=== PATIENT | male | born 1985 | race African-American/Black ===

== ENCOUNTER 2017-02-14 01:43 | Emergency (ER) | payer MEDICAID ==
[~2017-02-14] VITALS: Ht 177.8 cm; Wt 72.4 kg
[~2017-02-14 01:43] MED LIST: OXYC-229 PO
[2017-02-14 01:46] VITALS: BP 135/94
[2017-02-14] MEDS ORDERED: IBUPROFEN 200 MG TABLET PO ONE (02:30)
[2017-02-14] MEDS ORDERED: IBUPROFEN 200 MG TABLET ONE (02:48)
== END 2017-02-14 02:58 | disposition home or self-care (01) ==
LOC: ED 02:52
DX: S93.492A Sprain of other ligament of left ankle, initial encounter (principal); Z88.2 Allergy status to sulfonamides; W19.XXXA Unspecified fall, initial encounter; Y93.89 Activity, other specified; Y99.8 Other external cause status; Y92.89 Other specified places as the place of occurrence of the external cause

== ENCOUNTER 2018-06-06 22:11 | Emergency (ER) | payer OTHER ==
[~2018-06-06] VITALS: Ht 167.6 cm; Wt 80.0 kg
[~2018-06-06 22:11] MED LIST changes: -OXYC-229 PO; +OXYC-307 PO
[2018-06-06 22:13] VITALS: BP 131/79
[2018-06-06] MEDS ORDERED: LIDOCAINE 2%, 10ML INFIL ONE (23:00)
== END 2018-06-06 23:24 | disposition home or self-care (01) ==
LOC: ED 22:51
DX: L02.412 Cutaneous abscess of left axilla (principal); M19.90 Unspecified osteoarthritis, unspecified site; Z87.442 Personal history of urinary calculi
CPT/HCPCS: 10060; 99283

== ENCOUNTER 2019-04-14 00:16 | Emergency (ER) | payer MEDICAID, OTHER ==
[~2019-04-14] VITALS: Ht 177.8 cm; Wt 75.0 kg
[2019-04-14 00:18] VITALS: BP 128/89
--- NOTE | 2019-04-14 02:06 | NUR ---
PT D/C WITH D/C SUMMARY. ALL QUESTIONS ANSWERED. QUINTEN BANDAGE APPLIED TO LEFT LOWER EXTREMITY. PT DENIES ANY OTHER NEEDS PERTAINING TO THIS VISIT. PT AMBULATES TO REGISTRATION DESK WITH STEADY GAIT FOR D/C HOME WITH SPOUSE.
== END 2019-04-14 02:09 | disposition home or self-care (01) ==
LOC: ED 01:14
DX: S90.32XA Contusion of left foot, initial encounter (principal); F17.210 Nicotine dependence, cigarettes, uncomplicated; W22.09XA Striking against other stationary object, initial encounter; Y93.89 Activity, other specified; Y92.410 Unspecified street and highway as the place of occurrence of the external cause; Y99.8 Other external cause status
CPT/HCPCS: 99283

== ENCOUNTER 2019-08-31 21:18 | Emergency (ER) | payer MEDICAID ==
[~2019-08-31] VITALS: Ht 177.8 cm; Wt 73.8 kg
--- NOTE | 2019-08-31 21:38 | NUR ---
PT C/O PAINFUL URINATION, COUGHING, AND NOT FEELING GOOD. +VOMIT 3-4 TIMES TODAY. STATES HE THINKS HE PASSED A KIDNEY STONE YESTERDAY, HX MULTIPLE KIDNEY STONES. CONNECTED TO MONITORING. CALL LIGHT IN REACH. MD AT BEDSIDE, AWAITING ORDERS AT THIS TIME.
--- NOTE | 2019-08-31 21:45 | NUR ---
PT AMBULATED TO RESTROOM WITH STEADY GAIT TO PROVIDE URINE SAMPLE. UA COLLECTED AND SENT TO LAB. PT TO XRAY.
[2019-08-31 22:06] LABS: CULTURE INDICATED? YES; MICROSCOPIC INDICATED
[2019-08-31 22:09] LABS: BASOPHILS # (AUTO) 0.01 x10^3/uL (0-0.1); BASOPHILS % (AUTO) 0 % (0-1); EOSINOPHILS # (AUTO) 0.03 x10^3/uL (0-0.4); EOSINOPHILS % (AUTO) 0 % (1-7); LYMPHOCYTES # (AUTO) 2.57 x10^3/uL (1-3.4); LYMPHOCYTES % (AUTO) 30 % (22-44); MD NO; MEAN CORPUSCULAR HEMOGLOBIN 32.1 pg (27.5-34.5); MEAN CORPUSCULAR HGB CONC 34.1 g/dL (33.2-36.2); MEAN CORPUSCULAR VOLUME 94.1 fL (81-97); MEAN PLATELET VOLUME 7.3 fL (7.4-10.4); MONOCYTES # (AUTO) 0.41 x10^3/uL (0.2-0.8); MONOCYTES % (AUTO) 5 % (2-9); NEUTROPHILS # (AUTO) 5.58 x10^3/uL (1.8-6.8); NEUTROPHILS % (AUTO) 65 % (42-75); PLATELET COUNT 313 x10^3/uL (130-400); RED BLOOD COUNT 4.91 x10^6/uL (4.38-5.82); RED CELL DISTRIBUTION WIDTH 14.1 % (9.4-14.8)
[2019-08-31 22:23] LABS: ALANINE AMINOTRANSFERASE 21 U/L (12-78); ALBUMIN 4.1 g/dL (3.4-5.0); ANION GAP 2 mmol/L (5-15); CHLORIDE 108 mmol/L (98-107); CREATININE 0.98 mg/dL (0.7-1.3)
[2019-08-31 22:25] VITALS: BP 125/88
--- NOTE | 2019-08-31 22:25 | NUR ---
PT RESTING COMFORTABLY ON GURNEY. NIEVES.
[2019-08-31 22:27] LABS: ALKALINE PHOSPHATASE 52 U/L (45-117); TOTAL PROTEIN 7.4 g/dL (6.4-8.2); TROPONIN I < 0.015 ng/mL (0.000-0.045)
--- NOTE | 2019-08-31 22:32 | NUR ---
ALL RESULTS ARE BACK AT THIS TIME. CHART UP FOR RECHECK.
== END 2019-08-31 23:10 | disposition home or self-care (01) ==
LOC: ED 22:57
DX: M94.0 Chondrocostal junction syndrome [Tietze] (principal); R07.89 Other chest pain; G43.909 Migraine, unspecified, not intractable, without status migrainosus; F17.200 Nicotine dependence, unspecified, uncomplicated
CPT/HCPCS: 36415; 71046; 80053; 81001; 84484; 85025; 87086; 93005; 99284

== ENCOUNTER 2019-09-19 03:10 | Emergency (ER) | payer MEDICAID ==
[~2019-09-19] VITALS: Ht 177.8 cm; Wt 74.2 kg
--- NOTE | 2019-09-19 03:30 | NUR ---
PT REPORTS RIGHT FLANK PAIN WITH SUSPECTED KIDNEY STONES, PT REPORTS HX OF SAME, REPORTS STENT IN LEFT KIDNEY, WITH HX OF LITHOTRYPSY, BLOOD IN URINE 2 DAYS AGO BUT NONE VISIBLE PRESENTLY. PT REPORTS USE OF OXYCODONE/ ACETOMENAPHEN LAST NIGHT WITH IBUPROPHEN USE. PT POSITIVE FOR CVA PAIN. PT CONNECTED TO MONITORING, CALL LIGHT WITHIN REACH, ALL SAFETY MEASURES IN PLACE. ERP IN ROOM TO EVAL PT.
[2019-09-19 03:51] LABS: BASOPHILS # (AUTO) 0.02 x10^3/uL (0-0.1); BASOPHILS % (AUTO) 0 % (0-1); EOSINOPHILS # (AUTO) 0.03 x10^3/uL (0-0.4); EOSINOPHILS % (AUTO) 0 % (1-7); LYMPHOCYTES # (AUTO) 1.45 x10^3/uL (1-3.4); LYMPHOCYTES % (AUTO) 12 % (22-44); MD NO; MEAN CORPUSCULAR HEMOGLOBIN 32.1 pg (27.5-34.5); MEAN CORPUSCULAR VOLUME 94.6 fL (81-97); MEAN PLATELET VOLUME 7.4 fL (7.4-10.4); MONOCYTES # (AUTO) 0.38 x10^3/uL (0.2-0.8); MONOCYTES % (AUTO) 3 % (2-9); NEUTROPHILS # (AUTO) 10.73 x10^3/uL (1.8-6.8); NEUTROPHILS % (AUTO) 85 % (42-75); PLATELET COUNT 296 x10^3/uL (130-400)
[2019-09-19 03:59] LABS: CULTURE INDICATED? YES; MICROSCOPIC INDICATED
[2019-09-19 04:00] LABS: ALANINE AMINOTRANSFERASE 21 U/L (12-78); ALBUMIN 4.3 g/dL (3.4-5.0); ANION GAP 5 mmol/L (5-15); CALCIUM 8.9 mg/dL (8.5-10.1); CHLORIDE 108 mmol/L (98-107); CREATININE 1.11 mg/dL (0.7-1.3)
[2019-09-19] MEDS ORDERED: KETOROLAC 30 MG/1 ML IM ONE (04:00)
[2019-09-19 04:03] LABS: ALKALINE PHOSPHATASE 50 U/L (45-117); BILIRUBIN,TOTAL 0.8 mg/dL (0.2-1.0); TOTAL PROTEIN 7.4 g/dL (6.4-8.2)
--- NOTE | 2019-09-19 04:05 | NUR ---
PRECEPTING RN ASSUMING FULL CARE OF PT. AT THIS TIME.
[2019-09-19] MEDS ORDERED: KETOROLAC 30 MG/1 ML ONE (04:07)
--- NOTE | 2019-09-19 04:11 | NUR ---
PT. TO CT VIA [employer] AT THIS TIME. WILL MEDICATE UPON RETURN.
[2019-09-19 05:38] VITALS: BP 122/88
== END 2019-09-19 05:41 | disposition home or self-care (01) ==
LOC: ED 05:35
DX: N20.2 Calculus of kidney with calculus of ureter (principal); M19.90 Unspecified osteoarthritis, unspecified site; G43.909 Migraine, unspecified, not intractable, without status migrainosus
CPT/HCPCS: 36415; 74176; 80053; 81001; 83690; 85025; 87086; 96372; 99284; J1885

== ENCOUNTER 2019-09-29 23:07 | Emergency (ER) | payer MEDICAID ==
[~2019-09-29] VITALS: Ht 177.8 cm; Wt 76.6 kg
--- NOTE | 2019-09-29 23:47 | NUR ---
PT C/O RIGHT SIDE FLANK PAIN X2 DAYS. DX RIGHT KIDNEY STONE. STATES BLOOD IN URINE. CONNECTED TO MONITORING. CALL LIGHT IN REACH.
--- NOTE | 2019-09-29 23:49 | NUR ---
URINE COLLECTED AND SENT TO LAB.
[2019-09-29] MEDS ORDERED: TAMS-11 PO (23:53)
[2019-09-30] MEDS ORDERED: ONDANSETRON ODT 4 MG PO ONE
[2019-09-30] MEDS ORDERED: OXYcodone/APAP 5/325MG TABLET PO ONE
[2019-09-30] MEDS ORDERED: KETOROLAC 30 MG/1 ML IM ONE
[2019-09-30] MEDS ORDERED: KETOROLAC 30 MG/1 ML ONE (00:06)
[2019-09-30] MEDS ORDERED: ONDANSETRON ODT 4 MG ONE (00:06)
[2019-09-30] MEDS ORDERED: OXYcodone/APAP 5/325MG TABLET ONE (00:06)
--- NOTE | 2019-09-30 00:10 | NUR ---
MEDS ADMIN PER DEC. PT TAKEN TO US.
--- NOTE | 2019-09-30 00:14 | NUR ---
REPORT GIVEN TO AMRIK BLACK
[2019-09-30 00:21] LABS: BASOPHILS # (AUTO) 0.02 x10^3/uL (0-0.1); BASOPHILS % (AUTO) 0 % (0-1); EOSINOPHILS # (AUTO) 0.11 x10^3/uL (0-0.4); EOSINOPHILS % (AUTO) 1 % (1-7); LYMPHOCYTES # (AUTO) 2.73 x10^3/uL (1-3.4); LYMPHOCYTES % (AUTO) 34 % (22-44); MD NO; MEAN CORPUSCULAR HEMOGLOBIN 32.3 pg (27.5-34.5); MEAN PLATELET VOLUME 7.6 fL (7.4-10.4); MONOCYTES # (AUTO) 0.41 x10^3/uL (0.2-0.8); MONOCYTES % (AUTO) 5 % (2-9); NEUTROPHILS # (AUTO) 4.85 x10^3/uL (1.8-6.8); NEUTROPHILS % (AUTO) 60 % (42-75); PLATELET COUNT 253 x10^3/uL (130-400); RED BLOOD COUNT 4.34 x10^6/uL (4.38-5.82)
[2019-09-30 00:25] LABS: MICROSCOPIC AUTO
--- NOTE | 2019-09-30 00:25 | NUR ---
REPORT RECEIVED FROM RN. ASSUMED CARE OF PT. PT LYING IN BED, FAMILY AT BEDSIDE. NO NEEDS AT THIS TIME.
[2019-09-30 00:26] LABS: CULTURE INDICATED? YES
[2019-09-30 00:31] LABS: ALBUMIN 3.8 g/dL (3.4-5.0); ANION GAP 1 mmol/L (5-15); CALCIUM 8.3 mg/dL (8.5-10.1); CHLORIDE 109 mmol/L (98-107); CREATININE 1.16 mg/dL (0.7-1.3)
[2019-09-30] MEDS ORDERED: CEFDINIR 300 MG CAPSULE PO ONE (02:00)
[2019-09-30 02:20] VITALS: BP 141/78
== END 2019-09-30 02:22 | disposition home or self-care (01) ==
LOC: ED 09-30 00:35
DX: N30.00 Acute cystitis without hematuria (principal); N20.2 Calculus of kidney with calculus of ureter; F17.200 Nicotine dependence, unspecified, uncomplicated
CPT/HCPCS: 36415; 76770; 80048; 81001; 82040; 85025; 87086; 96372; 99284; J1885; Q0162

== ENCOUNTER 2019-10-05 02:38 | Inpatient (IN) | payer MEDICAID ==
[~2019-10-05] VITALS: Ht 177.8 cm; Wt 78.2 kg
[~2019-10-05 02:38] MED LIST changes: +TAMS-11 PO
[2019-10-05] MEDS ORDERED: ONDANSETRON 2MG/ML, 2ML IVPush ONE (03:30)
[2019-10-05] MEDS ORDERED: ONDANSETRON 2MG/ML, 2ML ONE ×2 (03:42→12:20)
[2019-10-05] MEDS ORDERED: MORPHINE SULFATE 4 MG/ML, 1ML ONE ×2 (03:42→04:13)
[2019-10-05 03:47] LABS: MEAN CORPUSCULAR HEMOGLOBIN 31.5 pg (27.5-34.5); MEAN CORPUSCULAR HGB CONC 33.7 g/dL (33.2-36.2); MEAN CORPUSCULAR VOLUME 93.4 fL (81-97); MEAN PLATELET VOLUME 7.5 fL (7.4-10.4); PLATELET COUNT 317 x10^3/uL (130-400); RED BLOOD COUNT 4.79 x10^6/uL (4.38-5.82); RED CELL DISTRIBUTION WIDTH 13.9 % (9.4-14.8)
[2019-10-05 03:51] LABS: ALANINE AMINOTRANSFERASE 20 U/L (12-78); ALBUMIN 4.3 g/dL (3.4-5.0); ANION GAP 7 mmol/L (5-15); CALCIUM 9.2 mg/dL (8.5-10.1); CHLORIDE 107 mmol/L (98-107); CREATININE 1.04 mg/dL (0.7-1.3)
[2019-10-05 03:54] LABS: ALKALINE PHOSPHATASE 46 U/L (45-117); TOTAL PROTEIN 7.7 g/dL (6.4-8.2)
[2019-10-05] MEDS: MORPHINE SULFATE 4 MG/ML, 1ML IVPush PRN ×2 (03:58→04:15)
--- NOTE | 2019-10-05 04:02 | NUR ---
PT WITH PAIN THE RIGHT FLANK AND RLQ X2-3 WEEKS. HX RENAL STONE. +N/V INTERMITTANT. PIV PLACED AND PT MEDICATED FOR PAIN PER EMAR. MOUTH SWABS PROVIDED PER PT REQUEST. FRIEND AT BEDSIDE. CALL LIGHT WITHIN REACH
--- NOTE | 2019-10-05 04:15 | NUR ---
PT RANG CALL LIGHT AND REQUESTS MORE PAIN MEDICATION BECAUSE HE STATES HE IS STILL IN A LOT OF PAIN. PT MEDICATED FOR PAIN A SECOND TIME AND DOSE 2 OF 2 MET.
[2019-10-05 04:33] LABS: BASOPHILS # (AUTO) 0.07 x10^3/uL (0-0.1); BASOPHILS % (AUTO) 1 % (0-1); EOSINOPHILS # (AUTO) 0.08 x10^3/uL (0-0.4); EOSINOPHILS % (AUTO) 1 % (1-7); LYMPHOCYTES # (AUTO) 2.44 x10^3/uL (1-3.4); LYMPHOCYTES % (AUTO) 18 % (22-44); MD SCAN; MONOCYTES # (AUTO) 0.56 x10^3/uL (0.2-0.8); MONOCYTES % (AUTO) 4 % (2-9); NEUTROPHILS # (AUTO) 10.55 x10^3/uL (1.8-6.8); NEUTROPHILS % (AUTO) 77 % (42-75)
[2019-10-05 04:55] LABS: MICROSCOPIC AUTO
[2019-10-05 05:02] LABS: CULTURE INDICATED? YES
[2019-10-05] MEDS ORDERED: KETOROLAC 30 MG/1 ML IVPush ONE (05:30)
[2019-10-05] MEDS ORDERED: KETOROLAC 30 MG/1 ML ONE (05:31)
--- NOTE | 2019-10-05 05:34 | NUR ---
PT STILL WITH PAIN. ER MD WARDO IN TO DISCUSS POC WITH PT AND ALSO ADDED NEW ORDERS FOR PAIN MEDICATION. PT MEDICATED FOR PAIN PER EMAR.
[2019-10-05] MEDS ORDERED: CEFTRIAXONE PMX 1GM/50ML 50 ML ONE (05:51)
[2019-10-05] MEDS ORDERED: CEFTRIAXONE PMX 1GM/50ML 50 ML IV ONE (06:00)
--- NOTE | 2019-10-05 06:00 | NUR ---
PER ER NO BC BEFORE ABX
[2019-10-05] MEDS ORDERED: MORPHINE SULFATE 4 MG/ML, 1ML IVPush PRN (06:30)
[2019-10-05] MEDS ORDERED: ONDANSETRON 2MG/ML, 2ML IVPush PRN ×2 (06:30→08:00)
--- NOTE | 2019-10-05 06:38 | NUR ---
Zehra Addendum: 10/05/19 at 0638 by DEON REPORT TO SOFIA Shahid
[2019-10-05] MEDS ORDERED: METOCLOPRAMIDE 5 MG/ML, 2ML IVPush PRN (08:00)
[2019-10-05] MEDS ORDERED: ACETAMINOPHEN 325 MG TABLET PO PRN ×2 (08:00→12:30)
[2019-10-05] MEDS ORDERED: DOCUSATE 100 MG CAPSULE PO PRN (08:00)
[2019-10-05] MEDS ORDERED: hydrALAzine 20 MG/ML, 1ML IVPush PRN (08:00)
[2019-10-05] MEDS ORDERED: NICOTINE 7 MG/24 HR PATCH.TD24 TD SCH (08:00)
[2019-10-05] MEDS ORDERED: PROMETHAZINE 25 MG/ML, 1ML IM PRN (08:00)
[2019-10-05] MEDS: HEPARIN 5,000 UNITS/ML, 1ML SQ SCH ×3 (08:00→23:16)
[2019-10-05] MEDS ORDERED: morphine SULFATE 10 MG/ML, 1ML IVPush PRN (08:00)
[2019-10-05] MEDS ORDERED: LABETALOL 5MG/ML, 20ML IVPush PRN (08:00)
[2019-10-05] MEDS ORDERED: POTASSIUM CHLORIDE 20 MEQ TAB.ER.PRT PO ONE (08:00)
[2019-10-05] MEDS ORDERED: POLYETHYLENE GLYCOL 17 GM PACKET PO PRN (08:00)
[2019-10-05] MEDS: SODIUM CHLORIDE 0.9% 1,000 ML IV SCH ×4 (08:37→23:13)
[2019-10-05] MEDS: TAMSULOSIN 0.4 MG CAP.ER.24H PO SCH (08:42)
[2019-10-05 09:00] VITALS: BP 124/80
[2019-10-05] MEDS: OXYcodone IR 5MG TABLET PO PRN ×2 (10:10→19:46)
[2019-10-05] MEDS ORDERED: FENTANYL PF 100 MCG/2ML ONE ×3 (12:18→15:38)
[2019-10-05] MEDS ORDERED: DEXAMETHASONE 4 MG/ML, 1ML ONE (12:20)
[2019-10-05] MEDS ORDERED: SUCCINYLCHOLINE 20 MG/ML, 10ML ONE (12:20)
[2019-10-05] MEDS ORDERED: PROPOFOL 10 MG/ML, 20ML ONE (12:20)
[2019-10-05] MEDS ORDERED: PROMETHAZINE 25 MG/ML, 1ML IV PRN (12:30)
[2019-10-05] MEDS ORDERED: OXYcodone 5 MG/5 ML ORAL.SOL UDC PO PRN (12:30)
[2019-10-05] MEDS ORDERED: hydrALAzine 20 MG/ML, 1ML IV PRN (12:30)
[2019-10-05] MEDS ORDERED: LABETALOL 5MG/ML, 20ML IV PRN (12:30)
[2019-10-05] MEDS ORDERED: MEPERIDINE/PF 25MG/ML,1ML IVPush PRN (12:30)
[2019-10-05] MEDS ORDERED: EPHEDRINE 50 MG/ML, 1ML IVPush PRN (12:30)
[2019-10-05] MEDS ORDERED: HYDROmorphone 2 MG/ML, 1ML IVPush PRN (12:30)
[2019-10-05] MEDS ORDERED: ONDANSETRON 2MG/ML, 2ML IV PRN (12:30)
[2019-10-05] MEDS ORDERED: MIDAZOLAM 1 MG/ML, 2ML ONE (13:40)
[2019-10-05] MEDS ORDERED: OXYcodone 5 MG/5 ML ORAL.SOL UDC ONE (15:38)
[2019-10-05] MEDS: FENTANYL PF 100 MCG/2ML IV PRN ×2 (15:42→15:50)
[2019-10-05] MEDS ORDERED: MEPERIDINE/PF 25MG/ML,1ML ONE (15:55)
[2019-10-05] MEDS: KETOROLAC 30 MG/1 ML IV PRN ×2 (16:52→23:20)
[2019-10-05 18:56] VITALS: BP 136/83
[2019-10-06 00:29] VITALS: BP 143/91
[2019-10-06] MEDS: OXYcodone IR 5MG TABLET PO PRN ×3 (01:45→10:06)
[2019-10-06 04:01] VITALS: BP 132/83
[2019-10-06] MEDS: SODIUM CHLORIDE 0.9% 1,000 ML IV SCH (05:32)
[2019-10-06 05:36] LABS: BASOPHILS # (AUTO) 0.08 x10^3/uL (0-0.1); BASOPHILS % (AUTO) 1 % (0-1); EOSINOPHILS # (AUTO) 0.01 x10^3/uL (0-0.4); EOSINOPHILS % (AUTO) 0 % (1-7); LYMPHOCYTES # (AUTO) 1.83 x10^3/uL (1-3.4); LYMPHOCYTES % (AUTO) 13 % (22-44); MD NO; MEAN CORPUSCULAR HEMOGLOBIN 31.2 pg (27.5-34.5); MEAN CORPUSCULAR HGB CONC 33.3 g/dL (33.2-36.2); MEAN CORPUSCULAR VOLUME 93.9 fL (81-97); MONOCYTES # (AUTO) 0.59 x10^3/uL (0.2-0.8); MONOCYTES % (AUTO) 4 % (2-9); NEUTROPHILS # (AUTO) 11.18 x10^3/uL (1.8-6.8); NEUTROPHILS % (AUTO) 82 % (42-75); PLATELET COUNT 285 x10^3/uL (130-400); RED BLOOD COUNT 4.44 x10^6/uL (4.38-5.82); RED CELL DISTRIBUTION WIDTH 14.1 % (9.4-14.8)
[2019-10-06 05:43] LABS: ANION GAP 4 mmol/L (5-15); CALCIUM 8.8 mg/dL (8.5-10.1); CHLORIDE 110 mmol/L (98-107)
[2019-10-06 05:44] LABS: CREATININE 0.97 mg/dL (0.7-1.3)
[2019-10-06 06:41] VITALS: BP 126/80
[2019-10-06] MEDS: KETOROLAC 30 MG/1 ML IV PRN (07:09)
[2019-10-06] MEDS: TAMSULOSIN 0.4 MG CAP.ER.24H PO SCH (08:12)
[2019-10-06] MEDS: HEPARIN 5,000 UNITS/ML, 1ML SQ SCH (08:12)
[2019-10-06] MEDS ORDERED: TAMS-11 PO (09:14)
[2019-10-06] MEDS ORDERED: DOCU100C33 PO (09:14)
[2019-10-06] MEDS ORDERED: OXYC5CAP2 PO (09:48)
[2019-10-07] MEDS ORDERED: ONDA4TAB7 PO (21:25)
== END 2019-10-06 10:28 | disposition home or self-care (01) | DRG 670 ==
LOC: ED 06:00 → EDIP 06:27 → 3N 06:30 → 4NE 16:35 → DCLOUNGE 10-06 10:17
PROVIDERS: ADMIT Internal Medicine; ATTEND Internal Medicine
PROC: 0TC68ZZ Extirpation of Matter from Right Ureter, Via Natural or Artificial Opening Endoscopic (ICD-10-PCS; principal; 2019-10-05 13:30)
DX: N13.2 Hydronephrosis with renal and ureteral calculous obstruction (principal); D72.829 Elevated white blood cell count, unspecified; E87.6 Hypokalemia; F17.210 Nicotine dependence, cigarettes, uncomplicated; N50.811 Right testicular pain; Z82.49 Family history of ischemic heart disease and other diseases of the circulatory system; Z83.3 Family history of diabetes mellitus; Z88.2 Allergy status to sulfonamides
CPT/HCPCS: 36415; 74018; 74176; 76000; 80048; 80053; 81001; 83036; 83690; 83735; 84100; 85025; 87086; 96374; 96375; 96376; 99285; G0378; J0696; J1100; J1885; J2250; J2405; J2704; J3010; C1769; J0330; J2175; J2270; J7030

== ENCOUNTER 2019-10-07 21:07 | Inpatient (IN) | payer MEDICAID ==
[~2019-10-07] VITALS: Ht 177.8 cm; Wt 78.0 kg
[~2019-10-07 21:07] MED LIST changes: +DOCU100C33 PO; +OXYC5CAP2 PO
[2019-10-07] MEDS ORDERED: ONDA4TAB7 PO (21:25)
--- NOTE | 2019-10-07 21:53 | NUR ---
first contact with pt. pt was dc from hospital yesterday after cystoscopy/lithotripsy. States that he lied a nd said that he had a bowel movement but has not. Began having upper abd pain yesterday evening, currently nauseated, diffuse abd pain. pt's aox4. resps even and unlabored. bp/spo2 monitors in place. call light within reach. edmd at bedside to evaluate at this time.
[2019-10-07] MEDS ORDERED: ONDANSETRON 2MG/ML, 2ML ONE (21:59)
[2019-10-07] MEDS ORDERED: HYDROmorphone 1 MG/ML, 1ML INJ ONE ×2 (21:59→23:11)
[2019-10-07] MEDS ORDERED: ONDANSETRON 2MG/ML, 2ML IVPush ONE (22:00)
[2019-10-07] MEDS: HYDROmorphone 2 MG/ML, 1ML IVPush PRN ×2 (22:11→23:13)
--- NOTE | 2019-10-07 22:13 | NUR ---
pt medicated per emar. pt tolerated well. pt's aox4. resps even and unlabored.
[2019-10-07 22:27] LABS: MICROSCOPIC AUTO
[2019-10-07 22:29] LABS: BASOPHILS # (AUTO) 0.04 x10^3/uL (0-0.1); BASOPHILS % (AUTO) 0 % (0-1); EOSINOPHILS # (AUTO) 0.03 x10^3/uL (0-0.4); EOSINOPHILS % (AUTO) 0 % (1-7); LYMPHOCYTES # (AUTO) 1.71 x10^3/uL (1-3.4); LYMPHOCYTES % (AUTO) 12 % (22-44); MD NO; MEAN CORPUSCULAR HEMOGLOBIN 31.7 pg (27.5-34.5); MEAN CORPUSCULAR HGB CONC 34.1 g/dL (33.2-36.2); MEAN CORPUSCULAR VOLUME 92.8 fL (81-97); MEAN PLATELET VOLUME 7.4 fL (7.4-10.4); MONOCYTES % (AUTO) 5 % (2-9); NEUTROPHILS # (AUTO) 11.34 x10^3/uL (1.8-6.8); NEUTROPHILS % (AUTO) 82 % (42-75); PLATELET COUNT 286 x10^3/uL (130-400); RED BLOOD COUNT 4.56 x10^6/uL (4.38-5.82)
[2019-10-07 22:32] LABS: CULTURE INDICATED? YES
[2019-10-07 22:41] LABS: ALANINE AMINOTRANSFERASE 17 U/L (12-78); ALBUMIN 3.8 g/dL (3.4-5.0); ANION GAP 8 mmol/L (5-15); CALCIUM 8.9 mg/dL (8.5-10.1); CHLORIDE 108 mmol/L (98-107); CREATININE 1.37 mg/dL (0.7-1.3)
[2019-10-07 22:43] LABS: ALKALINE PHOSPHATASE 52 U/L (45-117); BILIRUBIN,TOTAL 1.1 mg/dL (0.2-1.0); TOTAL PROTEIN 7.2 g/dL (6.4-8.2)
--- NOTE | 2019-10-07 23:08 | NUR ---
PT BACK TO ROOM FROM CT AT THIS TIME.
[2019-10-07] MEDS ORDERED: OMNIPAQUE 350 MG/ML, 100ML BOTTLE ONE (23:46)
--- NOTE | 2019-10-07 23:56 | NUR ---
PT REQUESTING PAIN MED AT THIS TIME. EDMD NOTIFIED.
--- NOTE | 2019-10-08 01:06 | NUR ---
ASSUMED CARE OF PATIENT. REPORT GIVEN FROM SOFIA COATS
--- NOTE | 2019-10-08 01:25 | NUR ---
DR MIRANDA IN ROOM
[2019-10-08] MEDS ORDERED: SODIUM CHLORIDE 0.9% 1,000ML IVBOLUS ONE (01:30)
[2019-10-08] MEDS ORDERED: ONDANSETRON 2MG/ML, 2ML IVPush ONE (01:30)
[2019-10-08] MEDS ORDERED: KETOROLAC 30 MG/1 ML IVPush ONE (01:30)
[2019-10-08] MEDS ORDERED: KETOROLAC 30 MG/1 ML ONE ×2 (01:38→14:18)
[2019-10-08] MEDS ORDERED: ONDANSETRON 2MG/ML, 2ML ONE (01:38)
[2019-10-08 03:26] VITALS: BP 130/84
[2019-10-08] MEDS ORDERED: POLYETHYLENE GLYCOL 17 GM PACKET PO PRN (04:30)
[2019-10-08] MEDS ORDERED: BISACODYL 10 MG SUPP PR PRN (04:30)
[2019-10-08] MEDS ORDERED: ONDANSETRON 2MG/ML, 2ML IVPush PRN ×2 (04:30→14:30)
[2019-10-08] MEDS: LACTATED RINGERS 1,000 ML IV SCH ×3 (04:58→18:04)
[2019-10-08] MEDS: KETOROLAC 30 MG/1 ML IV PRN ×4 (05:02→22:51)
[2019-10-08] MEDS ORDERED: POTASSIUM CHLORIDE 20 MEQ TAB.ER.PRT PO ONE (07:30)
[2019-10-08 07:38] VITALS: BP 129/81
[2019-10-08] MEDS: HYDROmorphone 2 MG/ML, 1ML IVPush PRN (08:09)
[2019-10-08] MEDS ORDERED: LACTULOSE 20 GM/30 ML UDC PO PRN (09:00)
[2019-10-08 09:51] LABS: BASOPHILS # (AUTO) 0.04 x10^3/uL (0-0.1); BASOPHILS % (AUTO) 0 % (0-1); EOSINOPHILS # (AUTO) 0.08 x10^3/uL (0-0.4); EOSINOPHILS % (AUTO) 1 % (1-7); LYMPHOCYTES # (AUTO) 2.12 x10^3/uL (1-3.4); LYMPHOCYTES % (AUTO) 15 % (22-44); MD NO; MEAN CORPUSCULAR HEMOGLOBIN 31.4 pg (27.5-34.5); MEAN CORPUSCULAR HGB CONC 33.5 g/dL (33.2-36.2); MEAN CORPUSCULAR VOLUME 93.8 fL (81-97); MEAN PLATELET VOLUME 7.3 fL (7.4-10.4); MONOCYTES # (AUTO) 0.92 x10^3/uL (0.2-0.8); MONOCYTES % (AUTO) 7 % (2-9); NEUTROPHILS # (AUTO) 10.62 x10^3/uL (1.8-6.8); NEUTROPHILS % (AUTO) 77 % (42-75); PLATELET COUNT 293 x10^3/uL (130-400); RED BLOOD COUNT 4.67 x10^6/uL (4.38-5.82)
[2019-10-08 10:02] LABS: CALCIUM 8.7 mg/dL (8.5-10.1); CREATININE 1.29 mg/dL (0.7-1.3)
[2019-10-08] MEDS: SENNA/DOCUSATE TABLET PO SCH (10:12)
[2019-10-08 10:13] LABS: ANION GAP 7 mmol/L (5-15); CHLORIDE 107 mmol/L (98-107)
[2019-10-08] MEDS ORDERED: PROPOFOL 10 MG/ML, 20ML ONE (12:49)
[2019-10-08] MEDS ORDERED: DEXAMETHASONE 4 MG/ML, 1ML ONE (12:49)
[2019-10-08] MEDS ORDERED: SUCCINYLCHOLINE 20 MG/ML, 10ML ONE (12:49)
[2019-10-08] MEDS ORDERED: CEFAZOLIN 1,000 MG ONE (12:49)
[2019-10-08] MEDS ORDERED: MIDAZOLAM 1 MG/ML, 2ML ONE (12:51)
[2019-10-08] MEDS ORDERED: FENTANYL PF 100 MCG/2ML ONE ×2 (13:03→14:18)
[2019-10-08] MEDS ORDERED: PHENAZOPYRIDINE 200 MG TABLET PO PRN (13:30)
[2019-10-08] MEDS ORDERED: PROMETHAZINE 25 MG/ML, 1ML IV PRN (14:30)
[2019-10-08] MEDS ORDERED: KETOROLAC 30 MG/1 ML IV PRN (14:30)
[2019-10-08] MEDS ORDERED: HYDROmorphone 1 MG/ML, 1ML INJ IV PRN (14:30)
[2019-10-08] MEDS ORDERED: ALBUTEROL SULFATE 2.5 MG/3 ML NPPB PRN (14:30)
[2019-10-08] MEDS ORDERED: FENTANYL PF 100 MCG/2ML IV PRN (14:30)
[2019-10-08] MEDS ORDERED: MEPERIDINE/PF 25MG/0.5ML IVPush PRN (14:30)
[2019-10-08] MEDS ORDERED: METOCLOPRAMIDE 5 MG/ML, 2ML IV PRN (14:30)
[2019-10-08] MEDS ORDERED: OXYcodone 5 MG/5 ML ORAL.SOL UDC PO PRN (14:30)
[2019-10-08] MEDS ORDERED: LABETALOL 5MG/ML, 20ML IV PRN (14:30)
[2019-10-08] MEDS ORDERED: hydrALAzine 20 MG/ML, 1ML IV PRN (14:30)
[2019-10-08 14:59] VITALS: BP 154/97
[2019-10-08] MEDS ORDERED: DIPHENHYDRAMINE 50 MG CAPSULE PO PRN (18:00)
[2019-10-08 19:43] VITALS: BP 139/91
[2019-10-09 01:10] VITALS: BP 127/85
[2019-10-09 04:49] VITALS: BP 151/95
[2019-10-09] MEDS: KETOROLAC 30 MG/1 ML IV PRN (05:17)
[2019-10-09] MEDS: LACTATED RINGERS 1,000 ML IV SCH (05:17)
[2019-10-09] MEDS: HYDROmorphone 2 MG/ML, 1ML IVPush PRN (05:25)
[2019-10-09 06:54] LABS: BASOPHILS # (AUTO) 0.04 x10^3/uL (0-0.1); BASOPHILS % (AUTO) 0 % (0-1); EOSINOPHILS # (AUTO) 0.08 x10^3/uL (0-0.4); EOSINOPHILS % (AUTO) 1 % (1-7); LYMPHOCYTES # (AUTO) 2.75 x10^3/uL (1-3.4); LYMPHOCYTES % (AUTO) 24 % (22-44); MD NO; MEAN CORPUSCULAR HEMOGLOBIN 31.1 pg (27.5-34.5); MEAN CORPUSCULAR HGB CONC 33.1 g/dL (33.2-36.2); MEAN CORPUSCULAR VOLUME 94.1 fL (81-97); MEAN PLATELET VOLUME 8.1 fL (7.4-10.4); MONOCYTES # (AUTO) 0.63 x10^3/uL (0.2-0.8); MONOCYTES % (AUTO) 6 % (2-9); NEUTROPHILS # (AUTO) 7.93 x10^3/uL (1.8-6.8); NEUTROPHILS % (AUTO) 69 % (42-75); PLATELET COUNT 271 x10^3/uL (130-400); RED BLOOD COUNT 4.51 x10^6/uL (4.38-5.82)
[2019-10-09 07:01] LABS: ANION GAP 7 mmol/L (5-15); CALCIUM 8.5 mg/dL (8.5-10.1); CHLORIDE 108 mmol/L (98-107); CREATININE 1.06 mg/dL (0.7-1.3)
[2019-10-09 07:28] VITALS: BP 137/89
[2019-10-09] MEDS: SENNA/DOCUSATE TABLET PO SCH (09:00)
[2019-10-09] MEDS ORDERED: OXYBUTYNIN CHLORIDE 5 MG TABLET PO SCH (09:00)
[2019-10-09] MEDS ORDERED: OXYB5TAB10 PO (09:08)
== END 2019-10-09 10:35 | disposition home or self-care (01) | DRG 661 ==
LOC: ED 10-08 00:29 → EDIP 10-08 01:58 → 4NE 10-08 02:55 → DCLOUNGE 10-09 10:26
PROVIDERS: ADMIT Family Medicine; ATTEND Family Medicine
PROC: 0T768DZ Dilation of Right Ureter with Intraluminal Device, Via Natural or Artificial Opening Endoscopic (ICD-10-PCS; principal; 2019-10-08 13:00)
DX: N13.2 Hydronephrosis with renal and ureteral calculous obstruction (principal); D72.829 Elevated white blood cell count, unspecified; N17.9 Acute kidney failure, unspecified; E86.0 Dehydration; E87.6 Hypokalemia; F17.210 Nicotine dependence, cigarettes, uncomplicated; K59.00 Constipation, unspecified; R31.0 Gross hematuria; Z87.442 Personal history of urinary calculi; Z88.2 Allergy status to sulfonamides
CPT/HCPCS: 36415; 74018; 74021; 74177; 76000; 80048; 80053; 81001; 83605; 83690; 85025; 87086; G0378; J0690; J1100; J1170; J1885; J2250; J2405; J2704; J3010; Q9967; C1769; C2617; J0330; J7030; J7120

== ENCOUNTER 2019-10-17 14:34 | Outpatient (CLI) | payer MEDICAID ==
[~2019-10-17 14:34] MED LIST changes: +ONDA4TAB7 PO; +OXYB5TAB10 PO
== END 2019-10-17 23:59 | disposition home or self-care (01) ==
LOC: CFH 14:34
PROVIDERS: ATTEND Urology
DX: N20.1 Calculus of ureter (principal); R10.9 Unspecified abdominal pain; Z96.0 Presence of urogenital implants
CPT/HCPCS: 74018

== ENCOUNTER 2020-03-28 20:21 | Emergency (ER) | payer MEDICAID ==
[~2020-03-28] VITALS: Ht 177.8 cm; Wt 73.0 kg
[2020-03-28 20:23] VITALS: BP 126/90
[2020-03-28] MEDS ORDERED: KETOROLAC 30 MG/1 ML ONE (21:20)
[2020-03-28] MEDS ORDERED: KETOROLAC 30 MG/1 ML IM ONE (21:30)
[2020-03-28] MEDS ORDERED: IBUPROFEN 600 MG TABLET ONE (21:41)
[2020-03-28] MEDS ORDERED: ACETAMINOPHEN 500 MG TABLET ONE (21:41)
[2020-03-28] MEDS ORDERED: IBUPROFEN 600 MG TABLET PO ONE (22:00)
[2020-03-28] MEDS ORDERED: ACETAMINOPHEN 500 MG TABLET PO ONE (22:00)
== END 2020-03-28 22:08 | disposition home or self-care (01) ==
LOC: ED 21:20
DX: S67.192A Crushing injury of right middle finger, initial encounter (principal); F17.210 Nicotine dependence, cigarettes, uncomplicated; G43.909 Migraine, unspecified, not intractable, without status migrainosus; Z87.442 Personal history of urinary calculi; W23.0XXA Caught, crushed, jammed, or pinched between moving objects, initial encounter; Y93.89 Activity, other specified; Y92.009 Unspecified place in unspecified non-institutional (private) residence as the place of occurrence of the external cause; Y99.8 Other external cause status
CPT/HCPCS: 29130; 73140; 96372; 99283; J1885; 29125

== ENCOUNTER 2020-04-12 23:51 | Emergency (ER) | payer MEDICAID ==
[~2020-04-12] VITALS: Ht 177.8 cm; Wt 73.0 kg
[2020-04-13] MEDS ORDERED: KETOROLAC 30 MG/1 ML ONE (00:09)
[2020-04-13] MEDS ORDERED: MORPHINE SULFATE 4 MG/ML, 1ML ONE (00:09)
[2020-04-13] MEDS ORDERED: ONDANSETRON 2MG/ML, 2ML ONE ×2 (00:09→01:36)
--- NOTE | 2020-04-13 00:21 | NUR ---
PT TO US AT THIS TIME. MEDICATED FOR PAIN ORDERED BEFORE.
[2020-04-13] MEDS ORDERED: SODIUM CHLORIDE FLUSH 10ML SYR IVF ONE (00:30)
[2020-04-13] MEDS ORDERED: KETOROLAC 30 MG/1 ML IVPush ONE (00:30)
[2020-04-13] MEDS ORDERED: MORPHINE SULFATE 4 MG/ML, 1ML IVPush PRN (00:30)
[2020-04-13] MEDS ORDERED: ONDANSETRON 2MG/ML, 2ML IVPush ONE (00:30)
[2020-04-13 00:38] LABS: MICROSCOPIC INDICATED
[2020-04-13 01:04] LABS: BASOPHILS # (AUTO) 0.03 x10^3/uL (0-0.1); BASOPHILS % (AUTO) 0 % (0-1); EOSINOPHILS # (AUTO) 0.05 x10^3/uL (0-0.4); EOSINOPHILS % (AUTO) 1 % (1-7); LYMPHOCYTES % (AUTO) 42 % (22-44); MD NO; MEAN CORPUSCULAR HEMOGLOBIN 31.2 pg (27.5-34.5); MEAN CORPUSCULAR HGB CONC 33.7 g/dL (33.2-36.2); MEAN CORPUSCULAR VOLUME 92.5 fL (81-97); MEAN PLATELET VOLUME 7.6 fL (7.4-10.4); MONOCYTES # (AUTO) 0.36 x10^3/uL (0.2-0.8); MONOCYTES % (AUTO) 5 % (2-9); NEUTROPHILS % (AUTO) 53 % (42-75); PLATELET COUNT 282 x10^3/uL (130-400); RED CELL DISTRIBUTION WIDTH 14.6 % (9.4-14.8)
[2020-04-13 01:11] LABS: ALANINE AMINOTRANSFERASE 27 U/L (12-78); ALBUMIN 3.9 g/dL (3.4-5.0); ANION GAP 6 mmol/L (5-15); CALCIUM 8.5 mg/dL (8.5-10.1); CHLORIDE 109 mmol/L (98-107); CREATININE 0.89 mg/dL (0.7-1.3)
[2020-04-13 01:13] LABS: ALKALINE PHOSPHATASE 49 U/L (45-117); BILIRUBIN,TOTAL 0.6 mg/dL (0.2-1.0); TOTAL PROTEIN 6.9 g/dL (6.4-8.2)
[2020-04-13] MEDS ORDERED: HYDROmorphone 1 MG/ML, 1ML INJ IV ONE (01:30)
[2020-04-13] MEDS ORDERED: HYDROmorphone 1 MG/ML, 1ML INJ ONE (01:36)
[2020-04-13 01:47] VITALS: BP 102/71
--- NOTE | 2020-04-13 03:08 | NUR ---
pt discharged by jayme azar rn
== END 2020-04-13 03:16 | disposition home or self-care (01) ==
LOC: ED 04-13 00:42
DX: N13.2 Hydronephrosis with renal and ureteral calculous obstruction (principal); M79.605 Pain in left leg; G43.909 Migraine, unspecified, not intractable, without status migrainosus
CPT/HCPCS: 36415; 74018; 76770; 80053; 81001; 85025; 96374; 96375; 99285; J1170; J1885; J2270; J2405

== ENCOUNTER 2020-04-14 05:18 | Emergency (ER) | payer MEDICAID ==
[~2020-04-14] VITALS: Ht 177.8 cm; Wt 73.0 kg
[2020-04-14] MEDS ORDERED: HYDROmorphone 1 MG/ML, 1ML INJ ONE ×3 (05:32→09:48)
[2020-04-14] MEDS ORDERED: ONDANSETRON 2MG/ML, 2ML ONE (05:32)
[2020-04-14] MEDS: HYDROmorphone 1 MG/ML, 1ML INJ IVPush PRN ×2 (05:38→06:46)
--- NOTE | 2020-04-14 05:39 | NUR ---
PT MEDICATED PER DEC 06 RIGHTS VERIFIED.
[2020-04-14] MEDS ORDERED: SODIUM CHLORIDE FLUSH 10ML SYR IVF ONE (06:00)
[2020-04-14] MEDS ORDERED: ONDANSETRON 2MG/ML, 2ML IVPush ONE (06:00)
[2020-04-14 06:29] LABS: BASOPHILS # (AUTO) 0.06 x10^3/uL (0-0.1); BASOPHILS % (AUTO) 0 % (0-1); EOSINOPHILS # (AUTO) 0.11 x10^3/uL (0-0.4); EOSINOPHILS % (AUTO) 1 % (1-7); LYMPHOCYTES # (AUTO) 4.85 x10^3/uL (1-3.4); LYMPHOCYTES % (AUTO) 31 % (22-44); MD NO; MEAN CORPUSCULAR HEMOGLOBIN 31.5 pg (27.5-34.5); MEAN CORPUSCULAR HGB CONC 33.8 g/dL (33.2-36.2); MEAN CORPUSCULAR VOLUME 93.3 fL (81-97); MEAN PLATELET VOLUME 8.2 fL (7.4-10.4); MONOCYTES # (AUTO) 0.69 x10^3/uL (0.2-0.8); MONOCYTES % (AUTO) 5 % (2-9); NEUTROPHILS # (AUTO) 9.73 x10^3/uL (1.8-6.8); NEUTROPHILS % (AUTO) 63 % (42-75); PLATELET COUNT 293 x10^3/uL (130-400); RED BLOOD COUNT 5.05 x10^6/uL (4.38-5.82); RED CELL DISTRIBUTION WIDTH 14.6 % (9.4-14.8)
[2020-04-14] MEDS ORDERED: KETOROLAC 30 MG/1 ML IVPush ONE (06:30)
[2020-04-14 06:35] LABS: ALANINE AMINOTRANSFERASE 33 U/L (12-78); ALBUMIN 4.3 g/dL (3.4-5.0); ANION GAP 5 mmol/L (5-15); CALCIUM 8.9 mg/dL (8.5-10.1); CHLORIDE 105 mmol/L (98-107)
[2020-04-14 06:38] LABS: ALKALINE PHOSPHATASE 55 U/L (45-117); CREATININE 1.15 mg/dL (0.7-1.3); TOTAL PROTEIN 7.8 g/dL (6.4-8.2)
[2020-04-14] MEDS ORDERED: KETOROLAC 30 MG/1 ML ONE (06:43)
--- NOTE | 2020-04-14 06:57 | NUR ---
REPORT RECEIVED FROM ELISEO BLACK.
--- NOTE | 2020-04-14 07:37 | NUR ---
PT PROVIDED URINE SAMPLE AT THIS TIME. URINE COLLECTED AND UA SENT.
[2020-04-14 07:45] LABS: MICROSCOPIC INDICATED
--- NOTE | 2020-04-14 08:36 | NUR ---
PT SLEEPING IN [facility]. RESPS EVEN AND UNLABORED. BP/SPO2 MONITORS IN PLACE. CALL LIGHT WITHIN REACH.
--- NOTE | 2020-04-14 09:05 | NUR ---
report from nato odonnell. pt back from ct. c/o L sided abd pain, asking for more pain meds. will communicate to md. denies nausea. vss. call lawrence. as
--- NOTE | 2020-04-14 09:22 | NUR ---
REPORT GIVEN TO MONE BLACK.
[2020-04-14 09:53] VITALS: BP 133/94
[2020-04-14] MEDS ORDERED: HYDROmorphone 2 MG/ML, 1ML IVPush PRN (10:00)
== END 2020-04-14 10:19 | disposition home or self-care (01) ==
LOC: ED 06:03
DX: N13.2 Hydronephrosis with renal and ureteral calculous obstruction (principal); N23 Unspecified renal colic; R31.9 Hematuria, unspecified; R11.2 Nausea with vomiting, unspecified; G43.909 Migraine, unspecified, not intractable, without status migrainosus
CPT/HCPCS: 36415; 74176; 80053; 81001; 85025; 96374; 96375; 96376; 99285; J1170; J1885; J2405

== ENCOUNTER 2020-06-02 20:55 | Emergency (ER) | payer MEDICAID ==
[~2020-06-02] VITALS: Ht 177.8 cm; Wt 73.3 kg
--- NOTE | 2020-06-02 21:12 | NUR ---
Patient presents to ER c/o periumbilical abd pain since . Patient thinks it is something he ate that day. Also c/o N/V/D. He ate today around approx 8428-2129. He was not able to keep it down and vomited. Patient is in NAD. Respirations even and unlaobred
[2020-06-02] MEDS ORDERED: METOCLOPRAMIDE 5 MG/ML, 2ML IVPush ONE (21:30)
[2020-06-02] MEDS ORDERED: SODIUM CHLORIDE FLUSH 10ML SYR IVF ONE (21:30)
[2020-06-02] MEDS ORDERED: SODIUM CHLORIDE 0.9% 1,000ML IVBOLUS ONE (21:30)
[2020-06-02] MEDS ORDERED: METOCLOPRAMIDE 5 MG/ML, 2ML ONE (21:38)
[2020-06-02 21:48] LABS: BASOPHILS # (AUTO) 0.03 x10^3/uL (0-0.1); BASOPHILS % (AUTO) 0 % (0-1); EOSINOPHILS # (AUTO) 0.07 x10^3/uL (0-0.4); EOSINOPHILS % (AUTO) 1 % (1-7); LYMPHOCYTES # (AUTO) 3.53 x10^3/uL (1-3.4); LYMPHOCYTES % (AUTO) 40 % (22-44); MD NO; MEAN CORPUSCULAR HEMOGLOBIN 31.5 pg (27.5-34.5); MEAN CORPUSCULAR HGB CONC 33.9 g/dL (33.2-36.2); MEAN CORPUSCULAR VOLUME 92.9 fL (81-97); MEAN PLATELET VOLUME 7.8 fL (7.4-10.4); MONOCYTES # (AUTO) 0.58 x10^3/uL (0.2-0.8); MONOCYTES % (AUTO) 7 % (2-9); NEUTROPHILS # (AUTO) 4.73 x10^3/uL (1.8-6.8); NEUTROPHILS % (AUTO) 53 % (42-75); PLATELET COUNT 300 x10^3/uL (130-400); RED CELL DISTRIBUTION WIDTH 14.4 % (9.4-14.8)
[2020-06-02 21:57] LABS: ALANINE AMINOTRANSFERASE 21 U/L (12-78); ALBUMIN 4.1 g/dL (3.4-5.0); ANION GAP 4 mmol/L (5-15); CHLORIDE 110 mmol/L (98-107); CREATININE 1.05 mg/dL (0.7-1.3)
[2020-06-02 22:05] LABS: ALKALINE PHOSPHATASE 58 U/L (45-117); BILIRUBIN,TOTAL 0.8 mg/dL (0.2-1.0); TOTAL PROTEIN 7.4 g/dL (6.4-8.2)
[2020-06-02 22:19] VITALS: BP 129/95
--- NOTE | 2020-06-02 22:55 | NUR ---
Discharge instructions given. All questions and concerns addressed. Patient ambulatory with a steady gait. Belongings with patient.
== END 2020-06-02 22:56 | disposition home or self-care (01) ==
LOC: ED 21:41
DX: R11.2 Nausea with vomiting, unspecified (principal); R19.7 Diarrhea, unspecified; R10.84 Generalized abdominal pain; R00.0 Tachycardia, unspecified; G43.909 Migraine, unspecified, not intractable, without status migrainosus
CPT/HCPCS: 36415; 80053; 83690; 85025; 96374; 99283; J2765; J7030

== ENCOUNTER 2020-07-18 22:26 | Emergency (ER) | payer MEDICAID ==
[~2020-07-18] VITALS: Ht 177.8 cm; Wt 73.9 kg
[2020-07-18 22:50] VITALS: BP 118/93
== END 2020-07-19 00:16 | disposition home or self-care (01) ==
LOC: ED 23:30
DX: S63.651A Sprain of metacarpophalangeal joint of left index finger, initial encounter (principal); S63.642A Sprain of metacarpophalangeal joint of left thumb, initial encounter; F17.210 Nicotine dependence, cigarettes, uncomplicated; X58.XXXA Exposure to other specified factors, initial encounter; Y93.89 Activity, other specified; Y92.89 Other specified places as the place of occurrence of the external cause; Y99.8 Other external cause status
CPT/HCPCS: 29125; 99283

== ENCOUNTER 2020-07-20 22:29 | Emergency (ER) | payer MEDICAID ==
[~2020-07-20] VITALS: Ht 177.8 cm; Wt 73.7 kg
[2020-07-20 22:31] VITALS: BP 121/85
== END 2020-07-21 00:03 | disposition home or self-care (01) ==
LOC: ED 22:40
DX: S63.642A Sprain of metacarpophalangeal joint of left thumb, initial encounter (principal); M79.642 Pain in left hand; F12.10 Cannabis abuse, uncomplicated; F17.210 Nicotine dependence, cigarettes, uncomplicated; G43.909 Migraine, unspecified, not intractable, without status migrainosus; X58.XXXA Exposure to other specified factors, initial encounter; Y93.89 Activity, other specified; Y92.89 Other specified places as the place of occurrence of the external cause; Y99.8 Other external cause status
CPT/HCPCS: 29125; 99283; 99406

== ENCOUNTER 2020-10-07 16:48 | Emergency (ER) | payer MEDICAID ==
[~2020-10-07] VITALS: Ht 177.8 cm; Wt 72.3 kg
[2020-10-07 16:51] VITALS: BP 131/89
== END 2020-10-07 17:39 | disposition home or self-care (01) ==
LOC: ED 17:00
DX: J06.9 Acute upper respiratory infection, unspecified (principal); J40 Bronchitis, not specified as acute or chronic; Z20.822 Contact with and (suspected) exposure to COVID-19; M19.90 Unspecified osteoarthritis, unspecified site; F17.200 Nicotine dependence, unspecified, uncomplicated
CPT/HCPCS: 71045; 87635; 93005; 99285

== ENCOUNTER 2020-11-09 21:50 | Emergency (ER) | payer MEDICAID ==
[~2020-11-09] VITALS: Ht 177.8 cm; Wt 73.0 kg
[~2020-11-09 21:50] MED LIST changes: -OXYC-307 PO; +OXYC-380 PO
--- NOTE | 2020-11-09 22:13 | NUR ---
pt came into ed tonight due to shoulder pain on the right side. pt denies trauma to the area. pt reports some numbness going down arm on right side. reports it goes all the way down to the finger tips. pt nad, walking to [facility] at this time. denies additional needs. wctm.
[2020-11-09] MEDS ORDERED: METHOCARBAMOL 750 MG TABLET PO ONE (22:30)
[2020-11-09] MEDS ORDERED: METHOCARBAMOL 750 MG TABLET ONE (22:42)
[2020-11-09] MEDS ORDERED: KETOROLAC 30 MG/1 ML ONE (22:45)
--- NOTE | 2020-11-09 22:49 | NUR ---
marina bolanos at , discussing results and care with pt regarding arm. pt nad, resting on gurney, medicated per mar, denies additional needs at this time. vss. wctm. pt to be dc'd
[2020-11-09] MEDS ORDERED: KETOROLAC 30 MG/1 ML IM ONE (23:00)
[2020-11-09 23:03] VITALS: BP 118/83
--- NOTE | 2020-11-09 23:04 | NUR ---
Patient given discharge instructions and they have confirmed that they understand the instructions. Patient ambulatory with steady gait. nad, denies additional needs, all questions answered appropriately. no personal belongings left in room after dc.
== END 2020-11-09 23:05 | disposition home or self-care (01) ==
LOC: ED 22:19
DX: M77.8 Other enthesopathies, not elsewhere classified (principal); M25.511 Pain in right shoulder; R20.0 Anesthesia of skin; M19.90 Unspecified osteoarthritis, unspecified site; G43.909 Migraine, unspecified, not intractable, without status migrainosus
CPT/HCPCS: 73030; 96372; 99283; J1885

== ENCOUNTER 2021-03-07 22:06 | Emergency (ER) | payer MEDICAID ==
[~2021-03-07] VITALS: Ht 177.8 cm; Wt 71.0 kg
[2021-03-07 22:08] VITALS: BP 125/88
[2021-03-07 22:39] LABS: BASOPHILS % (AUTO) 0 % (0-1); EOSINOPHILS % (AUTO) 0 % (1-7); LYMPHOCYTES % (AUTO) 26 % (22-44); MEAN CORPUSCULAR HEMOGLOBIN 32.4 pg (27.5-34.5); MEAN CORPUSCULAR HGB CONC 35.3 g/dL (33.2-36.2); MEAN PLATELET VOLUME 7.4 fL (7.4-10.4); MONOCYTES % (AUTO) 8 % (2-9); NEUTROPHILS % (AUTO) 65 % (42-75); PLATELET COUNT 263 x10^3/uL (130-400); RED BLOOD COUNT 4.74 x10^6/uL (4.38-5.82); RED CELL DISTRIBUTION WIDTH 14.3 % (9.4-14.8)
[2021-03-07 22:41] LABS: MD NO
[2021-03-07 22:47] LABS: ALANINE AMINOTRANSFERASE 25 U/L (12-78); ALBUMIN 4.1 g/dL (3.4-5.0); ANION GAP 4 mmol/L (5-15); CALCIUM 8.8 mg/dL (8.5-10.1); CHLORIDE 107 mmol/L (98-107); CREATININE 0.91 mg/dL (0.7-1.3)
[2021-03-07 22:50] LABS: ALKALINE PHOSPHATASE 62 U/L (45-117); BILIRUBIN,TOTAL 1.1 mg/dL (0.2-1.0); TOTAL PROTEIN 7.7 g/dL (6.4-8.2)
--- NOTE | 2021-03-08 00:33 | NUR ---
NOT IN LOBBY WHEN CALLED FOR ROOM.
--- NOTE | 2021-03-08 00:41 | NUR ---
PT NOT IN LOBBY WHEN CALLED FOR ROOM.
--- NOTE | 2021-03-08 00:56 | NUR ---
PT NOT IN LOBBY WHEN CALLED FOR ROOM. PT AMA.
== END 2021-03-08 00:58 | disposition left against medical advice (07) ==
LOC: ED 03-08 00:52
DX: R11.2 Nausea with vomiting, unspecified (principal); R07.89 Other chest pain; R19.7 Diarrhea, unspecified; R05 Cough; M79.10 Myalgia, unspecified site
CPT/HCPCS: 36415; 71045; 80053; 83690; 85025; 99284

== ENCOUNTER 2021-03-26 03:50 | Emergency (ER) | payer MEDICAID, OTHER ==
[~2021-03-26] VITALS: Ht 177.8 cm; Wt 74.0 kg
[~2021-03-26 03:50] MED LIST changes: -OXYC-380 PO; +OXYC-501 PO
--- NOTE | 2021-03-26 06:50 | NUR ---
REPORT FROM NAVA BLACK WITH ASSESSMENT NO GROSS DEFORMITY TO SHOULDER. FULL ROM NOTED, WITH POSITIVE DISTAL CMS PATIENT PROVIDED WORKERS [employer] PAPERWORK
[2021-03-26] MEDS ORDERED: ACETAMINOPHEN 500 MG TABLET ONE (07:26)
[2021-03-26] MEDS ORDERED: ACETAMINOPHEN 500 MG TABLET PO ONE (07:30)
[2021-03-26 07:52] VITALS: BP 137/70
== END 2021-03-26 07:54 | disposition home or self-care (01) ==
LOC: ED 04:13
DX: S43.101A Unspecified dislocation of right acromioclavicular joint, initial encounter (principal); S46.911A Strain of unspecified muscle, fascia and tendon at shoulder and upper arm level, right arm, initial encounter; G43.909 Migraine, unspecified, not intractable, without status migrainosus; X58.XXXA Exposure to other specified factors, initial encounter; Y93.89 Activity, other specified; Y92.89 Other specified places as the place of occurrence of the external cause; Y99.8 Other external cause status
CPT/HCPCS: 99283

== ENCOUNTER 2021-05-17 01:07 | Emergency (ER) | payer BC, OTHER ==
[~2021-05-17] VITALS: Ht 177.8 cm; Wt 73.9 kg
[~2021-05-17 01:07] MED LIST changes: +OXYC-380 PO; -OXYC-501 PO
[2021-05-17 01:09] VITALS: BP 120/84
== END 2021-05-17 01:46 | disposition home or self-care (01) ==
LOC: ED 01:10
DX: J06.9 Acute upper respiratory infection, unspecified (principal); Z20.822 Contact with and (suspected) exposure to COVID-19
CPT/HCPCS: 99283; U0003; U0005